=== PATIENT | female | born 1975 | race African-American/Black ===

== ENCOUNTER → 2018-03-31 | Day surgery (SDC) | payer BC ==
[~2018-03-31] MED LIST: CLINDAMYCIN PHOS 900MG/ 50ML 50 ML IV ONE; DEXAMETHASONE SOD PHOS INJ 4 MG/ML VIAL ONE; FENTANYL CITRATE/PF 100MCG/2 ML INJ ONE; LABETALOL PO; LIDOCAINE HCL 2% LOCAL INJ 5 ML SDV VIAL INJ ONE; METHYLERGONOVINE MALEATE 0.2 MG/ML AMP ONE; MIDAZOLAM HCL 2 MG/2 ML VIAL ONE; ONDANSETRON HCL INJ 2 MG/ML VIAL ONE; PROCARDIA PO; PROPOFOL IV EMULSION 10 MG/ML 20 ML VIAL ONE; SEVOFLURANE INHAL SOLN 250 ML PEN BTL ONE; SILVER NITRATE SWABS ONE
--- OUTSIDE RECORDS SUMMARY | 2018-03-31 10:37 | XMS REPORT | Clinical Summary ---
Author Author [facility] Address Unknown Phone Unavailable Care Team Providers Care Sales Project Administrator Name Role Phone Asked, No Pcp PCP Unavailable Allergies Comments Active Allergy Reactions Severity Noted Date Penicillins 03/20/2016 Medications No known medications Active Problems Not on file Social History Date Tobacco Use Types Packs/Day Years Used Never Smoker Alcohol Use Drinks/Week oz/Week Comments Yes Sex Assigned at Date Recorded Not on file Industry Job Start Date Occupation Not on file Not on file Not on file Travel End Travel History Travel Start No recent travel history available. Last Filed Vital Signs Not on file Plan of Treatment Health Maintenance Due Date Last Done Comments CERVICAL CANCER SCREENING 1998 INFLUENZA VACCINE 12/17/2017 Results Not on fileafter 03/30/2017 Insurance Payer Benefit Subscriber ID Type Phone Address Plan / Group BCBS ANTHEM xxxxxxxxxxxx PPO BLUE CROSS CVCP CVCP BCBS xxxxxxxxxxxx PPO [address] [facility], [address] [place] [address] (Home) [place] [address] Advance Directives Patient has advance care planning documents on file. For more information, becka rosen contact: Blayne Gongora [address] [place] [address]
--- OUTSIDE RECORDS SUMMARY | 2018-03-31 10:38 | XMS REPORT ---
Author Author [facility] Address Unknown Phone Unavailable Care Team Providers Care Director Plans Name Role Phone LISSY COLON Unavailable Unavailable Problems This patient has no known problems. Allergies, Adverse Reactions, Alerts This patient has no known allergies or adverse reactions. Medications This patient has no known medications. Results Test Description Test Time Test Comments Text Results Atomic Results Result Comments BASIC METABOLIC PANEL 2017-06-21 08:02:00 SODIUM (BEAKER) (test jjry=058) 138 meq/L 136-145 POTASSIUM (BEAKER) (test crwp=310) 3.8 meq/L 3.5-5.1 CHLORIDE (BEAKER) (test qmtk=722) 109 meq/L 98-107 CO2 (BEAKER) (test sklx=433) 20 meq/L 22-29 BLOOD UREA NITROGEN (BEAKER) (test bzxn=323) 10 mg/dL 7-21 CREATININE (BEAKER) (test xcys=119) 0.68 mg/dL 0.57-1.25 GLUCOSE RANDOM (BEAKER) (test vfio=035) 89 mg/dL 70-105 CALCIUM (BEAKER) (test nvwy=990) 8.6 mg/dL 8.4-10.2 EGFR (BEAKER) (test yjrg=2458) mL/min/1.73 sq m INSUFFICIENT CLINICAL DATA TO CALCULATE ESTIMATED GFR.
--- OUTSIDE RECORDS SUMMARY | 2018-03-31 10:38 | XMS REPORT | Clinical Summary ---
Author Author [facility] Address Unknown Phone Unavailable Care Team Providers Care Information Technology Coordinator Name Role Phone PCP Unavailable Allergies Comments Active Allergy Reactions Severity Noted Date Penicillins 06/20/2017 Medications End Date Status Medication Sig Dispensed Refills Start Date 06/22/2018 Active amLODIPine (NORVASC) 5 MG Take 1 tablet 30 tablet 3 tablet (5 mg total) 8 by mouth daily. 06/22/2018 Active losartan (COZAAR) 50 MG Take 1 tablet 30 tablet 3 tablet (50 mg total) 8 by mouth daily. 06/21/2017 Discontinued lisinopril Take 10 mg by 0 (PRINIVIL,ZESTRIL) 10 MG mouth daily. tablet 06/21/2017 Discontinued cloNIDine HCl (CATAPRES) Take 0.2 mg 0 0.2 MG tablet by mouth daily as needed Daily as needed for Diastolic BP greater than 100 . 06/21/2017 Discontinued cloNIDine HCl (CATAPRES) Take 0.1 mg 0 0.1 MG tablet by mouth. 06/21/2017 Discontinued lisinopril Take by mouth 0 (PRINIVIL,ZESTRIL) 10 MG daily. tablet Active Problems Problem Noted Date Hypertensive urgency 06/20/2017 Encounters Care Team Description Date Type Specialty 06/21/2017 Orders Only General Internal Medicine Vik Fam MD Nalam, Roopa Lata, MD Hypertensive urgency; Nonintractable headache, unspecified chronicity pattern, unspecified headache type 06/20/2017 Hospital Cardiology - Encounter 06/21/2017 after 03/30/2017 Social History Date Tobacco Use Types Packs/Day Years Used Never Smoker Smokeless Tobacco: Never Used Sex Assigned at Date Recorded Not on file Industry Job Start Date Occupation Not on file Not on file Not on file Travel End Travel History Travel Start No recent travel history available. Last Filed Vital Signs Time Taken Vital Sign Reading 06/21/2017 8:16 AM [facility] Blood Pressure 117/67 06/21/2017 8:16 AM [facility] Pulse 96 06/21/2017 8:16 AM [facility] Temperature 36.8 C (98.3 F) 06/21/2017 8:16 AM [facility] Respiratory Rate 20 06/21/2017 8:16 AM [facility] Oxygen Saturation 98% - Inhaled Oxygen - Concentration 06/21/2017 8:16 AM [facility] Weight 91.6 kg (201 lb 15.1 oz) 06/20/2017 10:29 PM [facility] Height 167.6 cm (5' 6") 06/21/2017 8:16 AM [facility] Body Mass Index 32.59 Plan of Treatment Not on file Procedures Comments Procedure Name Priority Date/Time Associated Diagnosis REPORT OF PROCEDURE - 06/24/2017 ENDOSCOPY SCAN 8:10 AM [facility] BASIC METABOLIC PANEL (7) Routine 06/21/2017 6:16 AM [facility] ECG 12-LEAD Routine 06/21/2017 12:32 AM [facility] Procedure Note - Interface, External Ris In - 06/21/2017 2:12 PM [facility] Ventricula r Rate 87 BPM Atrial Rate 87 BPM P-R Interval 162 ms QRS Duration 86 ms Q-T Interval 406 ms QTC Calculatio n(Bazett) 488 ms P [place] 30 degrees R [place] 34 degrees T [place] 44 degrees Normal sinus rhythm Cannot rule out Inferior infarct , age undetermin ed Abnormal ECG No previous ECGs available ECG 12-LEAD Routine 06/21/2017 12:32 AM [facility] after 03/30/2017 Results * EKG-SCANNED (06/24/2017 8:10 AM [facility]) Narrative Performed At * Basic metabolic panel (06/21/2017 6:16 AM [facility]BE[facility]) Sodium 138 136 - 145 meq/L [facility] Potassium 3.8 3.5 - 5.1 meq/L [facility] Chloride 109 (H) 98 - 107 meq/L [facility] CO2 20 (L) 22 - 29 meq/L [facility] BUN 10 7 - 21 mg/dL [facility] Creatinine 0.68 0.57 - 1.25 mg/dL [facility] Glucose 89 70 - 105 mg/dL [facility] Calcium 8.6 8.4 - 10.2 mg/dL [facility] EGFR Comment: INSUFFICIENT CLINICAL mL/min/1.73 sq m [facility] DATA TO CALCULATE ESTIMATED [facility] GFR. Specimen Blood - Arm, Left Performing Organization Address City/State/Zipcode Phone Number [facility] [address] [place] [address] [facility] * ECG 12 lead (06/21/2017 12:32 AM [facility]BEAD[facility]) Narrative Performed At Ventricular Rate 87 BPM GE MUSE Atrial Rate 87 BPM P-R Interval 162 ms QRS Duration 86 ms Q-T Interval 406 ms QTC Calculation(Bazett) 488 ms P [place] 30 degrees R [place] 34 degrees T [place] 44 degrees Normal sinus rhythm Cannot rule out Inferior infarct , age undetermined Abnormal ECG No previous ECGs available Confirmed by MD HUITRON NEIL ([id number]) on 06/21/2017 6:28:48 PM Procedure Note Interface, External Ris In - 06/21/2017 6:28 PM [facility] Ventricular Rate 87 BPM Atrial Rate 87 BPM P-R Interval 162 ms QRS Duration 86 ms Q-T Interval 406 ms QTC Calculation(Bazett) 488 ms P [place] 30 degrees R [place] 34 degrees T [place] 44 degrees Normal sinus rhythm Cannot rule out Inferior infarct , age undetermined Abnormal ECG No previous ECGs available Confirmed by MD HUITRNO NEIL ([id number]) on 06/21/2017 6:28:48 PM Performing Organization Address City/State/Zipcode Phone Number [facility] M[facility] after 03/30/2017 Insurance Payer Benefit Subscriber ID Type Phone Address Plan / Group BLUE CROSS/BLUE SHIELD BCBS PPO xxxxxxxxxxxx PPO [phone] [address] [place] [address] CHOICE Advance Directives For more information, please contact: [place] [phone] [place] [address] Date Inactivated Comments Code Status Date Activated 06/21/2017 2:04 PM Full Code 06/21/2017 12:19 AM This code status was determined by: Patient
[2018-03-31 11:34] LABS: BASOPHILS % 0.2 % (0.0-1.0); EOSINOPHILS % 0.6 % (0.0-6.0); HEMATOCRIT 38.5 % (34.2-44.1); HEMOGLOBIN 12.4 g/dL (12.0-16.0); LYMPHOCYTES # (AUTO) 1.2 (1.0-3.2); LYMPHOCYTES % 24.4 % (18.0-39.1); MEAN CORPUSCULAR HEMOGLOBIN 28.2 pg (28-32); MEAN CORPUSCULAR HGB CONC 32.2 g/dL (31-35); MEAN CORPUSCULAR VOLUME 87.7 fL (81-99); MONOCYTES # (AUTO) 0.5 (0.2-0.8); MONOCYTES % 9.6 % (4.4-11.3); NEUTROPHILS # (AUTO) 3.1 (2.1-6.9); PLATELET COUNT 312 x10e3/uL (140-360); RED BLOOD COUNT 4.39 x10e6/uL (3.6-5.1); RED CELL DISTRIBUTION WIDTH 13.2 % (11.7-14.4)
[2018-03-31 11:45] LABS: ALANINE AMINOTRANSFERASE 11 IU/L (0-55); ALBUMIN/GLOBULIN RATIO 1.2 (0.8-2.0); ALKALINE PHOSPHATASE 60 IU/L (40-150); ANION GAP 14.4 mmol/L (8-16); BLOOD UREA NITROGEN 7 mg/dL (7-26); BUN/CREATININE RATIO 10 (6-25); CALCIUM 9.1 mg/dL (8.4-10.2); CARBON DIOXIDE 22 mmol/L (22-29); CHLORIDE 102 mmol/L (98-107); CREATININE, SERUM 0.72 mg/dL (0.57-1.11); EST GLOMERULAR FILTRATION RATE > 60 ML/MIN (60-); GLUCOSE 83 mg/dL (74-118); POTASSIUM 3.4 mmol/L (3.5-5.1); SODIUM 135 mmol/L (136-145)
--- NOTE | 2018-03-31 15:20 | Operative Report ---
DATE OF PROCEDURE: March 31, 2018 PREOPERATIVE DIAGNOSIS: Missed . POSTOPERATIVE DIAGNOSIS: Missed . PROCEDURE: Suction and evacuation of retained products of conception. COMPLICATIONS: None. ESTIMATED BLOOD LOSS: 20 mL. DESCRIPTION OF PROCEDURE: The patient was taken to the OR, and general anesthesia was placed. She was prepped and draped in the normal sterile fashion. She was placed in the dorsal lithotomy position. The uterus was anteverted and mobile. No adnexal masses. The cervix admitted a suction cannula size 8 without dilatation. Vacuum was created, and suction obtaining products of conception was performed uneventfully. Sharp curettings were obtained, and suction curette was reintroduced to remove any debris. The patient tolerated the procedure well. The lap, instrument and needle count was correct x2 at the end of the procedure. Job#: [id number]
[2018-03-31 15:40] VITALS: BP 135/71
== END | disposition home or self-care (01) ==
LOC: OR 10:34
PROVIDERS: ATTEND Obstetrics & Gynecology
DX: O02.1 Missed abortion (principal); I10 Essential (primary) hypertension; M54.9 Dorsalgia, unspecified; Z88.0 Allergy status to penicillin
CPT/HCPCS: 36415; 59812; 80053; 84702; 85025; 88305; J1100; J2001; J2210; J2250; J2405; J2704; 88304